=== PATIENT | male | born 1990 | race Caucasian/White ===

== ENCOUNTER 2017-07-28 16:54 | Emergency (ER) | payer MEDICAID ==
[~2017-07-28] VITALS: Ht 185.4 cm; Wt 95.3 kg
[2017-07-28 17:19] VITALS: BP 147/76
--- NOTE | 2017-07-28 17:24 | NUR ---
Patient ambulated to bed 06.
--- NOTE | 2017-07-28 17:25 | NUR ---
Dr. William evaluating patient at bedside.
--- NOTE | 2017-07-28 17:35 | NUR ---
26M BIB SELF C/O SORE THROAT AND CONGESTION X3 DAYS; AAOX4 WITH EVEN AND STEADY GAIT; RR ARE EVEN AND UNLABORED; PATIENT STATES PAIN OF 6/10 AT THIS TIME; NAD; VSS; ER MD MENDEZ AWARE OF PT STATUS
--- NOTE | 2017-07-28 17:50 | NUR ---
Patient discharged with v/s stable. Written and verbal after care instructions given and explained. Patient alert, oriented and verbalized understanding of instructions. Ambulatory with steady gait. All questions addressed prior to discharge. ID band removed. Patient advised to follow up with PMD. Rx of mUCINEX given. Patient educated on indication of medication including possible reaction and side effects. Opportunity to ask questions provided and answered.
[2017-07-28 17:51] VITALS: BP 138/76
== END 2017-07-28 17:50 | disposition home or self-care (01) ==
LOC: MED 16:54
DX: J06.9 Acute upper respiratory infection, unspecified (principal); R03.0 Elevated blood-pressure reading, without diagnosis of hypertension; F17.210 Nicotine dependence, cigarettes, uncomplicated
CPT/HCPCS: 99283

== ENCOUNTER 2018-07-17 17:57 | Emergency (ER) | payer MEDICAID ==
[~2018-07-17] VITALS: Ht 182.9 cm; Wt 93.0 kg
[2018-07-17 18:34] VITALS: BP 137/73
--- NOTE | 2018-07-17 20:37 | NUR ---
PT AMBULATED TO BED 11
--- NOTE | 2018-07-17 20:51 | NUR ---
27/M CAME IN ED, C/O N/V X3 DAYS, DECREASED APPETITE AND GENERALIZED WEAKNESS. PT REPORTS "NOT BEING ABLE TO HOLD ANY FOOD DOWN." PT REPORTS INTERMITTENT 3/10 EPIGASTRIC PAIN WITH VOMITING, DENIES PAIN AT THIS TIME. BS HYPOACTIVE X4, ABD SOFT ROUND SLIGHT TENDERNESS ON EPIGASTRIC AREA, DENIES LOWER ABD TENDERNESS. LUNG SOUNDS CLEAR BL. PT DENIES ANY MED HX, RX.
--- NOTE | 2018-07-17 22:04 | NUR ---
PT RESTING COMFORTABLY IN BED, PT DENIES PAIN OR N/V AT THIS TIME, REPORTS SYMPTOMS ONLY WITH FOOD. ALL NEEDS MET AT THIS TIME.
[2018-07-17] MEDS ORDERED: DICYCLOMINE 20 MG/2 ML VIAL IM ONE (22:15)
[2018-07-17] MEDS ORDERED: ONDANSETRON 4 MG ODT PO ONE (22:15)
[2018-07-17 22:44] LABS: BASOPHILS % (AUTO) 0.3 % (0.0-2.0); EOSINOPHILS # (AUTO) 0.2 K/uL (0-0.4); EOSINOPHILS % (AUTO) 1.4 % (0.0-4.0); HEMATOCRIT 47.3 % (36-52); HEMOGLOBIN 15.9 g/dL (12.0-18.0); LYMPHOCYTES # (AUTO) 2.3 K/uL (2.0-11.5); LYMPHOCYTES % (AUTO) 20.9 % (20.5-51.1); MEAN CORPUSCULAR HEMOGLOBIN 31 pg (27-31); MEAN CORPUSCULAR HGB CONC 34 g/dL (33-37); MEAN CORPUSCULAR VOLUME 90.7 fL (80-94); MONOCYTES # (AUTO) 0.8 K/uL (0.8-1.0); MONOCYTES % (AUTO) 7.1 % (1.7-9.3); NEUTROPHILS # (AUTO) 7.9 K/uL (1.8-7.7); NEUTROPHILS % (AUTO) 70.3 % (42.2-75.2); PLATELET COUNT (AUTO) 234 K/uL (140-450); RED BLOOD CELL COUNT(AUTO) 5.22 MIL/uL (4.20-6.10); RED CELL DISTRIBUTION WIDTH 13.7 % (11.6-13.7); WHITE BLOOD COUNT (AUTO) 11.2 K/uL (4.8-10.8)
[2018-07-17 22:52] LABS: ANION GAP 7.6 (8-16); CREATININE 0.9 mg/dL (0.7-1.3); POTASSIUM 4.6 mmol/L (3.5-5.1)
[2018-07-17 22:57] LABS: ALBUMIN 4.2 g/dL (3.4-5.0); TOTAL BILIRUBIN 0.6 mg/dL (0.0-1.0)
--- NOTE | 2018-07-17 23:10 | NUR ---
PT MIK PO CHALLENGE
[2018-07-17 23:11] VITALS: BP 119/78
--- NOTE | 2018-07-17 23:12 | NUR ---
Patient discharged with v/s stable. Written and verbal after care instructions given and explained. Patient alert, oriented and verbalized understanding of instructions. Ambulatory with steady gait. All questions addressed prior to discharge. ID band removed. Patient advised to follow up with PMD. Rx of ZOFRAN AND BENTYL given. Patient educated on indication of medication including possible reaction and side effects. Opportunity to ask questions provided and answered.
== END 2018-07-17 23:12 | disposition home or self-care (01) ==
LOC: MED 17:57
DX: R11.2 Nausea with vomiting, unspecified (principal); R53.1 Weakness; R10.9 Unspecified abdominal pain; F17.210 Nicotine dependence, cigarettes, uncomplicated; Z88.0 Allergy status to penicillin
CPT/HCPCS: 36415; 80053; 83690; 85025; 96372; 99284; J0500; S0119

== ENCOUNTER 2019-02-18 19:06 | Emergency (ER) | payer SELFPAY ==
[~2019-02-18] VITALS: Ht 182.9 cm; Wt 81.6 kg
[2019-02-18 19:40] VITALS: BP 137/66
--- NOTE | 2019-02-18 19:40 | NUR ---
PT AMBULATED TO BED 7, TRIAGE AT BEDSIDE
--- NOTE | 2019-02-18 19:46 | NUR ---
28 Y MALE BIB SELF C/O LOWER BACK PAIN SINCE APPROXIMATELY 1529 TODAY, PT STATES HE GOT HOME FROM WORK, SAT DOWN AND STOOD UP QUICKLY AND FELT A SEVERE SHARP PAIN TO RIGHT LOWER BACK. PAIN 08/27. -N/V. DENIES TRAUMA. NO ECCHYMOSIS, SWELLING, REDNESS. BED IS DOWN, LOCKED, BED RAIL X 1, ERMD NOTIFIED. HX DENIES
--- NOTE | 2019-02-18 20:33 | NUR ---
Patient being evaluated by physician at bedside.
[2019-02-18] MEDS ORDERED: KETOROLAC 60 MG/2 ML VIAL IM ONE (20:35)
[2019-02-18 21:53] VITALS: BP 137/66
--- NOTE | 2019-02-18 21:53 | NUR ---
PT DISCHARGED BY DR. POSADA. INSTRUCTIONS GIVEN TO PATIENT. PT AMBULATED OUT OF FACILITY WITH STEADY GAIT.
== END 2019-02-18 21:53 | disposition home or self-care (01) ==
LOC: MED 19:06
DX: S33.5XXA Sprain of ligaments of lumbar spine, initial encounter (principal); Z88.0 Allergy status to penicillin; X58.XXXA Exposure to other specified factors, initial encounter; Y93.89 Activity, other specified; Y92.89 Other specified places as the place of occurrence of the external cause; Y99.8 Other external cause status
CPT/HCPCS: 96372; 99283; J1885

== ENCOUNTER 2020-03-07 22:02 | Emergency (ER) | payer SELFPAY ==
[~2020-03-07] VITALS: Ht 180.3 cm; Wt 97.5 kg
[2020-03-07 22:09] VITALS: BP 127/71
[2020-03-07] MEDS ORDERED: DOCU-299 PO (22:51)
[2020-03-07] MEDS ORDERED: CARB15DR8 OT (22:51)
[2020-03-07] MEDS ORDERED: LIDO1ADH53 TP (22:51)
[2020-03-07] MEDS ORDERED: ASPI-1822 PO (22:51)
[2020-03-07] MEDS ORDERED: OLOP2.5S OP (22:51)
[2020-03-07] MEDS ORDERED: LOTC TP (22:51)
[2020-03-07] MEDS ORDERED: ATRN INH (22:51)
[2020-03-07] MEDS ORDERED: DOCU1TAB73 PO (22:51)
[2020-03-07] MEDS ORDERED: DEXA5SUS20 RIGHT EYE (22:51)
[2020-03-07] MEDS ORDERED: LIP80 PO (22:51)
[2020-03-07] MEDS ORDERED: AMLO2.5T PO (22:51)
[2020-03-07] MEDS ORDERED: CARV3.12 PO (22:51)
[2020-03-07] MEDS ORDERED: MELA1TAB32 PO (22:51)
[2020-03-07 23:09] VITALS: BP 127/71
== END 2020-03-07 23:10 | disposition home or self-care (01) ==
LOC: MED 22:02 → EEVIPCON 22:02 → MED 23:10
DX: R05 Cough (principal); Z20.828 Contact with and (suspected) exposure to other viral communicable diseases; R09.89 Other specified symptoms and signs involving the circulatory and respiratory systems; R09.81 Nasal congestion; F17.200 Nicotine dependence, unspecified, uncomplicated; Z88.0 Allergy status to penicillin; Z79.899 Other long term (current) drug therapy
CPT/HCPCS: 36415; 71045; 87635; 99284; Q0092

== ENCOUNTER 2020-05-18 12:01 | Emergency (ER) | payer SELFPAY ==
[~2020-05-18] VITALS: Ht 180.3 cm; Wt 99.8 kg
[~2020-05-18 12:01] MED LIST: AMLO2.5T PO; ASPI-1822 PO; ATRN INH; CARB15DR8 OT; CARV3.12 PO; DEXA5SUS20 RIGHT EYE; DOCU-299 PO; DOCU1TAB73 PO; LIDO1ADH53 TP; LIP80 PO; LOTC TP; MELA1TAB32 PO; OLOP2.5D7 OP
[2020-05-18 12:14] VITALS: BP 124/65
--- NOTE | 2020-05-18 12:16 | NUR ---
C/O COUGH,SAINI, SORE THROAT X 2 DAYS. MOTHER HAS COVID +. MED HX: DENIES
--- NOTE | 2020-05-18 12:18 | NUR ---
COVID SWAB DONE.
[2020-05-18 12:51] VITALS: BP 120/61
--- NOTE | 2020-05-18 12:51 | NUR ---
Patient discharged with v/s stable. Written and verbal after care instructions given and explained. Patient verbalized understanding. Ambulatory with steady gait. All questions addressed prior to discharge. Advised to follow up with PMD.
== END 2020-05-18 12:51 | disposition home or self-care (01) ==
LOC: MED 12:01
DX: J02.9 Acute pharyngitis, unspecified (principal); Z20.828 Contact with and (suspected) exposure to other viral communicable diseases; F17.201 Nicotine dependence, unspecified, in remission; J45.909 Unspecified asthma, uncomplicated; Z79.84 Long term (current) use of oral hypoglycemic drugs; Z79.899 Other long term (current) drug therapy; Z88.0 Allergy status to penicillin
CPT/HCPCS: 99283; U0003

== ENCOUNTER 2020-09-07 11:21 | Emergency (ER) | payer SELFPAY ==
[~2020-09-07] VITALS: Ht 180.3 cm; Wt 90.7 kg
[2020-09-07 11:24] VITALS: BP 130/87
--- NOTE | 2020-09-07 11:26 | NUR ---
PATIENT AMBULATED TO ER BED 04
--- NOTE | 2020-09-07 11:29 | NUR ---
X-Ray at bedside.
--- NOTE | 2020-09-07 11:32 | NUR ---
PATIENT PRESENTS TO ED WITH PT C/O L FOOT PAIN & SWELLLING, NO REDNESS, SKIN INTACT, NO DEFORMITY S/P TWISTED X TODAY. DENIES N/V/D; SKIN IS PINK/WARM/DRY; AAOX4 WITH EVEN AND STEADY GAIT; LUNGS CLEAR BL; HR EVEN AND REGULAR; PT DENIES ANY FEVER, CP, SOB, OR COUGH AT THIS TIME; VSS; PATIENT POSITIONED FOR COMFORT; HOB ELEVATED; BEDRAILS UP X1; BED DOWN. ER MD MADE AWARE OF PT STATUS. PMH: DENIES MED HX: DENIES
[2020-09-07] MEDS ORDERED: IBUPROFEN 800 MG TAB PO ONE (11:35)
== END 2020-09-07 11:50 | disposition home or self-care (01) ==
LOC: MED 11:21
DX: S93.602A Unspecified sprain of left foot, initial encounter (principal); R03.0 Elevated blood-pressure reading, without diagnosis of hypertension; J45.909 Unspecified asthma, uncomplicated; F17.200 Nicotine dependence, unspecified, uncomplicated; Z88.0 Allergy status to penicillin; Z79.899 Other long term (current) drug therapy; X58.XXXA Exposure to other specified factors, initial encounter; Y93.89 Activity, other specified; Y92.89 Other specified places as the place of occurrence of the external cause; Y99.8 Other external cause status
CPT/HCPCS: 73630; 99283

== ENCOUNTER 2020-12-23 12:39 | Emergency (ER) | payer OTHER ==
[~2020-12-23] VITALS: Ht 180.3 cm; Wt 88.5 kg
[2020-12-23 12:43] VITALS: BP 134/58
[2020-12-23 14:31] VITALS: BP 133/56
== END 2020-12-23 14:25 | disposition home or self-care (01) ==
LOC: MED 12:39
DX: K21.9 Gastro-esophageal reflux disease without esophagitis (principal); R19.7 Diarrhea, unspecified; F17.210 Nicotine dependence, cigarettes, uncomplicated; J45.909 Unspecified asthma, uncomplicated; Z71.6 Tobacco abuse counseling; Z88.0 Allergy status to penicillin; Z79.899 Other long term (current) drug therapy
CPT/HCPCS: 99283; U0003

== ENCOUNTER 2021-05-03 05:58 | Emergency (ER) | payer OTHER ==
[~2021-05-03] VITALS: Ht 182.9 cm; Wt 80.3 kg
[2021-05-03 06:01] VITALS: BP 139/78
--- NOTE | 2021-05-03 06:05 | NUR ---
PT AMBULATORY TO BED #11
[2021-05-03] MEDS ORDERED: NAPROXEN 500 MG TAB PO SCH (06:25)
--- NOTE | 2021-05-03 06:31 | NUR ---
PT BIB SELF FOR C/O COUGH AND HEADACHE X 3 DAYS. PT REPORTS COUGH IS PRODUCTIVE WITH GREEN PHLEGM. PT DENIES FEVER, CHILLS, SOB, CP, N/V/D. BILATERAL LUNG SOUNDS CLEAR. DENIES CONTACT WITH COVID 19 PATIENT. MED HX: ASTHMA ( A CHILD) ALLERGIES: PENICILLINS
[2021-05-03] MEDS ORDERED: KETOROLAC 30 MG/ML VIAL ONE (06:34)
[2021-05-03] MEDS ORDERED: KETOROLAC 30 MG/ML VIAL IM ONE (06:35)
--- NOTE | 2021-05-03 06:38 | NUR ---
RUSTY COLLECTED AND WALKED TO LAB.
--- NOTE | 2021-05-03 06:39 | NUR ---
XRAY AT BEDSIDE.
--- NOTE | 2021-05-03 07:09 | NUR ---
REPORT GIVEN TO JOSE LEWIS FOR CONTINUITY OF CARE.
[2021-05-03] MEDS ORDERED: NAPR-54 PO (07:34)
[2021-05-03 07:44] VITALS: BP 139/78
--- NOTE | 2021-05-03 07:45 | NUR ---
Patient discharged with v/s stable. Written and verbal after care instructions given laryngitis and explained. Patient alert, oriented and verbalized understanding of instructions. Ambulatory with steady gait. All questions addressed prior to discharge. ID band removed. Patient advised to follow up with PMD. Rx of naproxen 500mg po bid prn pain given. Patient educated on indication of medication including possible reaction and side effects. Opportunity to ask questions provided and answered.
== END 2021-05-03 07:46 | disposition home or self-care (01) ==
LOC: MED 05:58
DX: J04.0 Acute laryngitis (principal); J45.909 Unspecified asthma, uncomplicated; Z88.0 Allergy status to penicillin; Z79.899 Other long term (current) drug therapy; Z20.822 Contact with and (suspected) exposure to COVID-19
CPT/HCPCS: 71045; 87426; 96372; 99284; J1885

== ENCOUNTER 2021-07-03 19:10 | Emergency (ER) | payer OTHER ==
[~2021-07-03] VITALS: Ht 180.3 cm; Wt 93.0 kg
[~2021-07-03 19:10] MED LIST changes: +NAPR-54 PO
[2021-07-03 20:15] VITALS: BP 130/62
--- NOTE | 2021-07-03 20:18 | NUR ---
TO LOBBY A/W BED AMBULATORY
--- NOTE | 2021-07-03 20:41 | NUR ---
PT TAKEN TO XRAY
--- NOTE | 2021-07-03 21:00 | NUR ---
PT CALLED 2X BY DR. AN WITH NO ANSWER.
--- NOTE | 2021-07-03 21:09 | NUR ---
PT CALLED BY DR. AN WITH NO ANSWER.
--- NOTE | 2021-07-03 21:15 | NUR ---
PATIENT LEFT WITHOUT BEING SEEN BY DR. AN. NO FURTHER CARE PROVIDED FOR PATIENT.
[2021-07-04] MEDS ORDERED: NAPR-54 PO (02:13)
== END 2021-07-03 21:00 | disposition left against medical advice (07) ==
LOC: MED 19:10
DX: M79.642 Pain in left hand (principal); J45.909 Unspecified asthma, uncomplicated; Z88.0 Allergy status to penicillin; Z79.899 Other long term (current) drug therapy; Z79.82 Long term (current) use of aspirin; Z53.21 Procedure and treatment not carried out due to patient leaving prior to being seen by health care provider
CPT/HCPCS: 73130; 99283

== ENCOUNTER 2021-07-04 01:46 | Emergency (ER) | payer OTHER ==
[~2021-07-04] VITALS: Ht 182.9 cm; Wt 90.7 kg
[2021-07-04 01:55] VITALS: BP 139/72
--- NOTE | 2021-07-04 01:58 | NUR ---
TO LOBBY A/W BED AMBULATORY
[2021-07-04] MEDS ORDERED: NAPR-54 PO (02:13)
== END 2021-07-04 02:18 | disposition home or self-care (01) ==
LOC: MED 01:46
DX: S60.222A Contusion of left hand, initial encounter (principal); J45.909 Unspecified asthma, uncomplicated; Z88.0 Allergy status to penicillin; Z79.899 Other long term (current) drug therapy; W22.01XA Walked into wall, initial encounter; Y93.89 Activity, other specified; Y92.89 Other specified places as the place of occurrence of the external cause; Y99.8 Other external cause status
CPT/HCPCS: 99282

== ENCOUNTER 2021-07-10 11:19 | Emergency (ER) | payer OTHER ==
[~2021-07-10] VITALS: Ht 180.3 cm; Wt 91.2 kg
[2021-07-10 11:23] VITALS: BP 151/82
--- NOTE | 2021-07-10 12:42 | NUR ---
no nursing interventions given
== END 2021-07-10 12:41 | disposition home or self-care (01) ==
LOC: MED 11:19
DX: S60.222A Contusion of left hand, initial encounter (principal); J45.909 Unspecified asthma, uncomplicated; Z79.1 Long term (current) use of non-steroidal anti-inflammatories (NSAID); Z88.0 Allergy status to penicillin; X58.XXXA Exposure to other specified factors, initial encounter; Y92.89 Other specified places as the place of occurrence of the external cause; Y93.89 Activity, other specified; Y99.8 Other external cause status
CPT/HCPCS: 99281

== ENCOUNTER 2022-07-09 12:32 | Emergency (ER) | payer SELFPAY ==
[~2022-07-09] VITALS: Ht 182.9 cm; Wt 86.2 kg
[2022-07-09 12:57] VITALS: BP 129/77
--- NOTE | 2022-07-09 12:59 | NUR ---
PT SENT TO ER LOBBY TO WAIT FOR AVAILABLE BED.
--- NOTE | 2022-07-09 13:00 | NUR ---
31 Y/O MALE BIB SELF C/O CONGESTION COUGH X1-2 DAYS.SATTING AT 99% RA, DENIES BEING AROUND ANYONE WITH COVID. PT TESTED AT HOME WITH COVID AND TESTED NEGATIVE. HX ASTHMA ALLERGY: PCN
[2022-07-09] MEDS ORDERED: IBUPROFEN 600 MG TAB PO ONE (15:50)
[2022-07-09] MEDS ORDERED: SUD30 PO (15:51)
[2022-07-09] MEDS ORDERED: IBUP-1842 PO (15:51)
--- NOTE | 2022-07-09 15:59 | NUR ---
PT NOT IN LOBBY, LEFT W/O DC INSTRUCTIONS
== END 2022-07-09 15:59 | disposition home or self-care (01) ==
LOC: MED 12:32
DX: J06.9 Acute upper respiratory infection, unspecified (principal); Z20.822 Contact with and (suspected) exposure to COVID-19; J45.909 Unspecified asthma, uncomplicated; Z79.899 Other long term (current) drug therapy; Z79.1 Long term (current) use of non-steroidal anti-inflammatories (NSAID); Z79.82 Long term (current) use of aspirin; Z88.0 Allergy status to penicillin
CPT/HCPCS: 99283